=== PATIENT | male | born 1975 | race Caucasian/White ===

== ENCOUNTER 2020-07-13 13:15 | Emergency (ER) | payer OTHER ==
[~2020-07-13 13:15] MED LIST: FLOMAX0.4 MG PO; MOBIC15 MG PO; NORCO 7.5-3251 EACH PO; ONDANSETRON ODT4 MG PO
[2020-07-13 14:27] LABS: HEMOGLOBIN 14.5 gm/dl (14.0-17.5); RED BLOOD COUNT 4.92 M/UL (4.20-5.50); WHITE BLOOD COUNT 6.7 K/UL (4.5-11.0)
[2020-07-13 14:48] LABS: BUN/CREATININE RATIO 17 (0-10)
[2020-07-13] MEDS ORDERED: VIBRAMYCIN100 MG PO (16:37)
== END 2020-07-13 16:50 | disposition home or self-care (01) ==
LOC: ER1 13:15
PROVIDERS: Student in an Organized Health Care Education/Training Program
DX: U07.1 COVID-19 (principal); J12.82 Pneumonia due to coronavirus disease 2019; E11.9 Type 2 diabetes mellitus without complications; I10 Essential (primary) hypertension; Z79.84 Long term (current) use of oral hypoglycemic drugs
CPT/HCPCS: 0241U; 71046; 80053; 82550; 82553; 83874; 84484; 85025; 93005; 99285